=== PATIENT | male | born 1990 | race Caucasian/White ===

== ENCOUNTER 2018-06-23 13:33 | Emergency (ER) | payer OTHER ==
[2018-06-23] MEDS ORDERED: NS 1,000 ML IV ONE (14:05)
--- NOTE | 2018-06-23 14:09 | EDPHY ---
H & P Stated Complaint: slurred speech Time Seen by Provider: 06/23/18 13:51 HPI/ROS: CHIEF COMPLAINT: Episode of slurred speech HISTORY OF PRESENT ILLNESS: 27-year-old male presents emergency department reporting that this morning around 930 he developed slurred speech. He reports that on the phone to his mother she said it sounded like he had a thick tongue and had difficulty articulating the words. He spoke to his brother who thought his speech sounded pretty normal. Symptoms lasted 1 hr per the patient. No history of word-finding difficulties just slurred speech. Patient denies any numbness or tingling in his face, around his lips, weakness, numbness, or tingling in the arms or legs. He denies any visual difficulties. He has had no headache. No recent head trauma. Patient does perform an aerial exercise which involves a hanging up the the entire body weight. When he was performing this maneuver last night he had a very brief episode of a pinch or twinge in his posterior left head as well as left side of his neck. This discomfort has not continued. Patient reports being otherwise well. No fevers or chills, chest pain, shortness of breath, palpitations, vomiting, diarrhea, urinary complaints or headache. REVIEW OF SYSTEMS: A comprehensive 10 system review of systems was reviewed and is otherwise negative aside from elements mentioned in the history of present illness and medical decision making. PAST MEDICAL HISTORY: Anxiety. Patient takes risperidone and Lexapro. No changes in his medications recently. SOCIAL HISTORY: Denies illicit drug use. Denies marijuana use. Occasional alcohol, nonsmoker. Here with his brother. Family history of migraines? VITAL SIGNS Reviewed by me. GENERAL: Well-developed, well-nourished, resting comfortably in no respiratory distress. Speech is fluent and articulate. HEENT: Atraumatic. Eyes: PERRL, EOMI, no nystagmus. No icterus. No injection. Mouth: moist mucous membranes. No erythema or lesions. Posterior pharynx is clear, no swelling. Tongue is normal. No swelling. Neck: No meningitis. Nontender to palpation. No adenopathy. Negative Kernig's. Negative Brudzinski's. No meningismus. LUNGS: Clear to auscultation bilaterally, no wheezes, rhonchi or rales. CARDIAC: Regular rate and rhythm, no rubs, murmurs or gallops. ABDOMEN: Soft, nontender, nondistended, bowel sounds normal. BACK: No CVA tenderness. EXTREMITIES: No trauma. No edema. Range of motion is normal throughout. NEURO: Alert and oriented, cranial nerves II through XII are intact. Motor strength 5 over 5 in all major muscle groups. Sensation intact to light touch. Normal gait. Normal [id number], normal [id number]. SKIN: Warm and dry, no rash. PSYCHIATRIC: Normal mentation, no agitation. - Personal History Current Tetanus Diphtheria and Acellular Pertussis (TDAP): Yes - Medical/Surgical History Hx Asthma: No Hx Chronic Respiratory Disease: No Hx Diabetes: No Hx Cardiac Disease: No Hx Renal Disease: No Hx Cirrhosis: No Hx Alcoholism: No Hx HIV/AIDS: No Hx Splenectomy or Spleen Trauma: No Other PMH: anxiety - Social History Smoking Status: Never smoked Constitutional: Initial Vital Signs Temperature (C) 36.7 C 06/23/18 13:36 Heart Rate 80 06/23/18 13:36 Respiratory Rate 16 06/23/18 13:36 Blood Pressure 137/79 H 06/23/18 13:36 O2 Sat (%) 99 06/23/18 13:36 O2 Delivery Mode Room Air Allergies/Adverse Reactions: cephalexin [From Keflex] Allergy (Verified 06/23/18 14:07) prednisone Allergy (Verified 06/23/18 14:07) Home Medications: Medication Instructions Recorded Gabapentin [Neurontin 300 MG (*)] 300 mg PO HS #30 cap 06/23/18 Lexapro 06/23/18 Risperdal 06/23/18 Medical Decision Making - Diagnostics Imaging Results: Imaging Impressions Chest X-Ray 06/23/18 14:05 Impression: Normal chest. Head CT 06/23/18 14:05 Impression: Normal. CT angiogram pending. Findings and recommendations discussed with Julissa Mercado MD at 2:30 PM hour , 06/23/2018. Final report concurs with initial preliminary interpretation. Head CTA 06/23/18 14:05 Impression: 1. Normal CT angiogram of the neck. 2. Normal CT angiogram of the [place], as detailed above. Note: All calculations were performed using NASCET criteria. Findings discussed with Julissa Mercado MD at 14:50 hour, 06/23/2018. Neck CTA 06/23/18 14:05 Impression: 1. Normal CT angiogram of the neck. 2. Normal CT angiogram of the [place], as detailed above. Note: All calculations were performed using NASCET criteria. Findings discussed with Julissa Mercado MD at 14:50 hour, 06/23/2018. Brain MRI 06/23/18 15:17 Impression: Normal MRI of the brain without contrast. Results called and discussed with Julissa Mercado MD at 06/23/2018 16:33. Imaging: Discussed imaging studies w/ square dance caller Radiologist ED Course/Re-evaluation: 27-year-old male presents emergency department with the development of slurred speech at 9:30 a.m. This morning lasting until 10 30. Stroke alert was called. Patient's EKG demonstrates normal sinus rhythm. Troponin is negative and electrolytes are largely unremarkable. Creatinine is 0.7. CT head without contrast negative. Patient was evaluated by [facility] Dr. Hernandez via the tele robot. Given his history of left-sided neck discomfort and performing aerial gymnastics , angiograms of the head and neck were recommended. CT angiogram of the head and neck negative. Course discussed again with [facility]. At this point, we will obtain an MRI. If this is negative for any ischemic findings patient is safe to be discharged home. MRI negative. Urine tox negative. Discussed all the findings with the patient and his brother. Brother notes that on occasion patient is not having slurred speech but will stop in the middle of a word and then say repeat the word. It is almost as if he is a bit hesitant in what he is saying. He does report that he has not had a lot of sleep over the last several days and only slept about 5 hr last night. He does drink a fair amount of caffeine. Patient's course was discussed with Dr. Víctor Whyte. Recommendations to begin gabapentin 300 mg at night both for probable complex migraine as well as for any anxiety issues. Dr. Whyte will see the patient next week in his office. Patient and brother are comfortable with the plan. Please see the discharge instructions. Follow-up for further evaluation. Differential Diagnosis: Differential diagnoses the patient's presenting complaints was considered including but not limited to intracranial injury, TIA, ischemic cerebrovascular accident, hemorrhagic cerebrovascular accident, hypoglycemia, complex migraine , metastases, tumor, seizure, or electrolyte abnormality - Data Points Laboratory Results: Laboratory Results 06/23/18 14:15 06/23/18 14:15 06/23/18 06/23/18 06/23/18 15:54 14:16 14:16 WBC RBC Hgb POC Hgb 13.9 gm/dL gm/dL (13.7-17.5) Hct POC Hct 41 % % (40-51) MCV MCH MCHC RDW Plt Count MPV Neut % (Auto) Lymph % (Auto) [place] % (Auto) Eos % (Auto) Baso % (Auto) Nucleat RBC Rel Count Absolute Neuts (auto) Absolute Lymphs (auto) Absolute Monos (auto) Absolute Eos (auto) Absolute Basos (auto) Absolute Nucleated RBC Immature Gran % Immature Gran # PT INR APTT POC Sodium 138 mEq/L mEq/L (135-145) Sodium POC Potassium 3.6 mEq/L mEq/L (3.3-5.0) Potassium POC Chloride 101 mEq/L mEq/L (97-110) Chloride Carbon Dioxide POC Total CO2 22 mEq/L mEq/L (22-31) Anion Gap POC BUN 15 mg/dL mg/dL (7-23) BUN Creatinine POC Creatinine 0.7 mg/dL mg/dL (0.7-1.3) Estimated GFR Glucose POC Glucose 120 mg/dL H mg/dL (70-100) Calcium POC Troponin I 0.00 ng/mL ng/mL (0.00-0.08) Urine Opiates Screen NEGATIVE (NEGATIVE) Urine Barbiturates NEGATIVE (NEGATIVE) Ur Phencyclidine Scrn NEGATIVE (NEGATIVE) Ur Amphetamine Screen NEGATIVE (NEGATIVE) U Benzodiazepines Scrn NEGATIVE (NEGATIVE) Urine Cocaine Screen NEGATIVE (NEGATIVE) U Marijuana (THC) Screen NEGATIVE (NEGATIVE) 06/23/18 06/23/18 06/23/18 14:15 14:15 14:15 WBC 9.56 10^3/uL H 10^3/uL (3.80-9.50) RBC 4.65 10^6/uL 10^6/uL (4.40-6.38) Hgb 14.7 g/dL g/dL (13.7-17.5) POC Hgb Hct 41.3 % % (40.0-51.0) POC Hct MCV 88.8 fL fL (81.5-99.8) MCH 31.6 pg pg (27.9-34.1) MCHC 35.6 g/dL g/dL (32.4-36.7) RDW 12.2 % % (11.5-15.2) Plt Count 211 10^3/uL 10^3/uL (150-400) MPV 9.6 fL fL (8.7-11.7) Neut % (Auto) 80.1 % H % (39.3-74.2) Lymph % (Auto) 12.0 % L % (15.0-45.0) [place] % (Auto) 6.7 % % (4.5-13.0) Eos % (Auto) 0.6 % % (0.6-7.6) Baso % (Auto) 0.3 % % (0.3-1.7) Nucleat RBC Rel Count 0.0 % % (0.0-0.2) Absolute Neuts (auto) 7.65 10^3/uL H 10^3/uL (1.70-6.50) Absolute Lymphs (auto) 1.15 10^3/uL 10^3/uL (1.00-3.00) Absolute Monos (auto) 0.64 10^3/uL 10^3/uL (0.30-0.80) Absolute Eos (auto) 0.06 10^3/uL 10^3/uL (0.03-0.40) Absolute Basos (auto) 0.03 10^3/uL 10^3/uL (0.02-0.10) Absolute Nucleated RBC 0.00 10^3/uL 10^3/uL (0-0.01) Immature Gran % 0.3 % % (0.0-1.1) Immature Gran # 0.03 10^3/uL 10^3/uL (0.00-0.10) PT 13.8 SEC SEC (12.0-15.0) INR 1.10 (0.83-1.16) APTT 25.2 SEC SEC (23.0-38.0) POC Sodium Sodium 135 mEq/L mEq/L (135-145) POC Potassium Potassium 3.7 mEq/L mEq/L (3.5-5.2) POC Chloride Chloride 101 mEq/L mEq/L (97-110) Carbon Dioxide 22 mEq/l mEq/l (22-31) POC Total CO2 Anion Gap 12 mEq/L mEq/L (6-14) POC BUN BUN 16 mg/dL mg/dL (7-23) Creatinine 0.7 mg/dL mg/dL (0.7-1.3) POC Creatinine Estimated GFR > 60 Glucose 115 mg/dL H mg/dL (70-100) POC Glucose Calcium 9.0 mg/dL mg/dL (8.5-10.4) POC Troponin I Urine Opiates Screen Urine Barbiturates Ur Phencyclidine Scrn Ur Amphetamine Screen U Benzodiazepines Scrn Urine Cocaine Screen U Marijuana (THC) Screen Medications Given: Discontinued Medications Sodium Chloride (Ns) 1,000 mls @ 500 mls/hr IV EDNOW ONE PRN Reason: Protocol Stop: 06/23/18 16:04 Last Admin: 06/23/18 14:35 Dose: 1,000 mls Point of Care Test Results: Chemistry 06/23/18 06/23/18 14:16 14:16 POC Sodium 138 mEq/L mEq/L (135-145) POC Potassium 3.6 mEq/L mEq/L (3.3-5.0) POC Chloride 101 mEq/L mEq/L (97-110) POC Total CO2 22 mEq/L mEq/L (22-31) POC BUN 15 mg/dL mg/dL (7-23) POC Creatinine 0.7 mg/dL mg/dL (0.7-1.3) POC Glucose 120 mg/dL H mg/dL (70-100) POC Troponin I 0.00 ng/mL ng/mL (0.00-0.08) ISTAT H&H 06/23/18 14:16 POC Hgb 13.9 gm/dL gm/dL (13.7-17.5) POC Hct 41 % % (40-51) Departure - Departure Disposition: Home, Routine, Self-Care Clinical Impression: Slurred speech Condition: Good Instructions: Transient Ischemic Attack (ED), Migraine Headache (ED) Additional Instructions: There is no evidence of a stroke on your evaluation today. A transient ischemic attack or atypical migraine may be the cause. Please follow up with Neurology as directed. You been given a prescription for gabapentin. Dose is 300 mg at night. This may help prevent any future complex migraines and will also help with any anxiety. Please avoid excessive caffeine intake as well as please try to get plenty of rest. Return to the emergency department or seek care urgently if your symptoms recur , or if you develop other focal symptoms such as visual difficulty, weakness in arm or leg, facial numbness or tingling, word-finding difficulty, or other concerns. Referrals: Mario Pompa MD [Primary Care Provider] - As per Instructions Víctor Whyte DO [Medical Doctor] - As per Instructions Prescriptions: Gabapentin [Neurontin 300 MG (*)] 300 mg PO HS #30 cap
[2018-06-23] MEDS ORDERED: IOPAMIDOL (ISOVUE-370) 150 ML BTL IV ONE (14:12)
[2018-06-23 14:39] LABS: PLATELET COUNT 211 10^3/uL (150-400)
[2018-06-23 14:40] LABS: INR 1.1 (0.83-1.16); PROTIME(PATIENT) 13.8 SEC (12.0-15.0)
--- NOTE | 2018-06-23 17:06 | CPEKG ---
Test Reason : OPEN Blood Pressure : / mmHG Vent. Rate : 091 BPM Atrial Rate : 092 BPM P-R Int : 153 ms QRS Dur : 098 ms QT Int : 372 ms P-R-T Axes : 073 039 058 degrees QTc Int : 458 ms Sinus rhythm Confirmed by Julissa Mercado ([id number]) on 06/23/2018 5:05:53 PM Referred By: Julissa Mercado Confirmed By:Julissa Mercado
[2018-06-23 17:26] VITALS: BP 133/71
== END 2018-06-23 17:26 | disposition home or self-care (01) ==
LOC: SUPCPDRO 13:33
DX: R47.81 Slurred speech (principal); F41.9 Anxiety disorder, unspecified; E86.9 Volume depletion, unspecified; Z79.899 Other long term (current) drug therapy
CPT/HCPCS: 70551-PN; 80305; 82435-PO; 82565-PO; 82947-PO; 84132-PO; 84295-PO; 84484-ER; 84520-PO; 85014-ER; Q9967